=== PATIENT | male | born 2005 | race Caucasian/White ===

== ENCOUNTER 2024-04-16 14:52 | Outpatient (REF) | payer OTHER, SELFPAY ==
--- OUTSIDE RECORDS SUMMARY | 2024-04-16 15:58 | XMS_ITS | Clinical Summary ---
Author Organization [employer] Address [address] [facility] 7t [place] [address] Care Team Providers Care Supervisor [employer] Name Role Phone Jaqueline Fernández MD Primary Care Provider [phone] Allergies No known active allergies Medications * This document contains information received from the source organization and may not represent a complete record from that organization. cetirizine (ZyrTEC) 10 MG tablet 1 tablet by oral route daily 09/17/2020 Active Melatonin 5 MG capsule one at night for better sleep 03/03/2021 Active Sodium Fluoride (PreviDent) 1.1 % gel Orange 2x a day and floss with toothpaste. Spit excess, do not rinse. Do not eat or drink for 30min after 09/24/2021 Active buPROPion XL (Wellbutrin XL) 150 MG 24 hr tablet Take 150 mg by mouth in the morning. 01/02/2023 Active busPIRone (Buspar) 5 MG tablet 03/28/2023 Active meloxicam (Mobic) 15 MG tablet TAKE 1 TABLET BY MOUTH EVERY DAY IN THE MORNING 30 tablet 06/27/2023 Active Active Problems Problem Noted Date Diagnosed Date Adjustment disorder with mixed anxiety and depre ssed mood 09/27/2022 Assessment & Plan (09/27/2022 9:11 AM EDT): Assessment: Artie was engaged with active reflective listening and open-ended questions. Assessed symptoms, risks, and social supports with direct questions. Discussed current symptoms intensity and frequency. Emotions were normalized and validated. He identified playing music as coping mechanisms and his girlfriend as protective factors. Provided psychoeducation around relaxation techniques and coping skills for anxiety. Discussed OP therapy and Medication Management he agreed to Ind. Therapy referral. Provided education around integrated medicine and the options of follow up BE's as needed. Provided contact information should questions or concerns arise. Plan: Artei will continue to engage in effective coping mechanisms that has worked for him in the past and will try the new ones at least 2 times per day for 6 months to develop the skills. Patient with lack of motivation, feeling down, sleep disturbance, little energy, low self-esteem, trouble with concentration, passive thoughts w/o plan or intention, feeling anxious, persistent worry, trouble with relaxing, fidgeting, irritable, fearfulness. He denies SI, HI, or self-harm. He recently moved with his girlfriend to her parents house, reported is a more calm environment, Hx of been bullied in school, next week will start working at [employer]. Currently drinking on social occasion, smoking cannabis almost every day and cigarettes some time. Today his PHQ9 score was 12 and his GAD7 was 16. Patient will benefit from Ind. Therapy. At this time Artie Eastman meets criteria for Visit Diagnoses: Problem List Items Addressed This Visit Other Adjustment disorder with mixed anxiety and depressed mood Patient ready to address current needs Yes Strengths include willing to seek treatment PLAN: 1. Follow up with [facility]: Not recommended for follow-up 2. Patient goal is to engage in MH services 3. Behavioral Recommendations a. Ind. Therapy b. Use of coping skills c. [facility] contact for support as needed. Continuous cannabis use 09/27/2022 Assessment & Plan (09/27/2022 9:11 AM EDT): Assessment: Artie was engaged with active reflective listening and open-ended questions. Assessed symptoms, risks, and social supports with direct questions. Discussed current symptoms intensity and frequency. Emotions were normalized and validated. He identified playing music as coping mechanisms and his girlfriend as protective factors. Provided psychoeducation around relaxation techniques and coping skills for anxiety. Discussed OP therapy and Medication Management he agreed to Ind. Therapy referral. Provided education around integrated medicine and the options of follow up BE's as needed. Provided contact information should questions or concerns arise. Plan: Artie will continue to engage in effective coping mechanisms that has worked for him in the past and will try the new ones at least 2 times per day for 6 months to develop the skills. Patient with lack of motivation, feeling down, sleep disturbance, little energy, low self-esteem, trouble with concentration, passive thoughts w/o plan or intention, feeling anxious, persistent worry, trouble with relaxing, fidgeting, irritable, fearfulness. He denies SI, HI, or self-harm. He recently moved with his girlfriend to her parents house, reported is a more calm environment, Hx of been bullied in school, next week will start working at [employer]. Currently drinking on social occasion, smoking cannabis almost every day and cigarettes some time. Today his PHQ9 score was 12 and his GAD7 was 16. Patient will benefit from Ind. Therapy. At this time Artie Eastman meets criteria for Visit Diagnoses: Problem List Items Addressed This Visit Other Adjustment disorder with mixed anxiety and depressed mood Patient ready to address current needs Yes Strengths include willing to seek treatment PLAN: 1. Follow up with [facility]: Not recommended for follow-up 2. Patient goal is to engage in MH services 3. Behavioral Recommendations a. Ind. Therapy b. Use of coping skills c. [facility] contact for support as needed. Seasonal allergies 07/12/2017 Attention deficit hyperactivity disorder 013 Encounters Date Type Department Care Team Description 04/16/2024 1:40 PM EST Office Visit [facility] [address] [place] [address] Chlamydia contact (Primary Dx) 04/16/2024 Travel 04/16/2024 Telephone [facility] [address] [place] [address] Jaqueline Fernández MD Nurse Triage 03/28/2024 Telephone [facility] [address] [place] [address] Jaqueline Fernández MD Nurse Triage from Last 3 Months Immunizations Name Administration Dates Next Due DTaP 11/25/2008, 6,03/24/2005,01/25 DTaP / HiB / IPV 11/25/2008 HPV 9-Valent 01/24/2017,05/20/2016 Hep A, ped/adol, 2 dose 09/04/2018,12/25/2015 Hep B, Adolescent or Pediatric 6,03/24/2005,01/25/2005,11/23 HiB, unspecified 11/25/2008 Hib (HbOC) 06/02/2005,03/24/2005,01/25/2005 IPV 06/02/2005,03/24/2005,01/25/2005 Influenza injectable quadriv alent preservative free 03/31/2023,04/21/2016 Influenza live intranasal qu adrivalent LIAV4 03/25/2015 Influenza, live, intranasal 12/21/2011 Influenza, seasonal, injecta ble, preservative free 02/10/2022 MMR 11/25/2008 MMRV 12/25/2015 Meningococcal MCV4P ACYW-135 05/20/2016 Meningococcal Polysaccharide A,C,Y,W-135 TT Conjugate 03/31/2023 Pfizer Covid-19 Vaccine 12+ 10/20/2020 Pneumococcal Conjugate PCV 7 11/25/2008,06/03/19 06,03/24/2005 Pneumococcal, Unspecified 11/25/2008,06/02/2005, 03/24/2005 Tdap 05/20/2016 Varicella 11/25/2008 Social History Tobacco Use Types Packs/Day Years Used Date Smoking Tobacco: Every Day Cigarettes 0.1 2.1 Started: 2022 Smokeless Tobacco: Never Tobacco Cessation:Ready to Q uit: No; Counseling Given: Yes Alcohol Use Standard Drinks/Week Comments Not Currently 0 (1 standard drink = 0.6 oz pur e alcohol) Depression Answer Date Recorded Patient Health Questionnaire-9 Score 13 03/31/2023 Patient Health Questionnaire-9 Score 13 03/31/2023 Last PHQ-9: Questionnaire Data Not on file 0 03/31/2023 Housing Stability Answer Date Recorded What is your housing situation today? I have mariannibeth maravilla 01/02/[address] you li ve. Do you have problems with any of the following? None of the above 01/02/2023 Food Insecurity Answer Date Recorded Within the past 12 months, y ou worried that your food would run out before you got money to buy more: Never True 01/02/2023 Within the past 12 months,th e food you bought just didn't last and you didn't have enough money to get more: Never True 07/2022 Transportation Answer Date Recorded In the past 12 months, has l ack of transportation kept you from medical appts, meetings, work or from getting things needed for daily living? No 01/02/2023 Utilities Answer Date Recorded In the past 12 months, has t he electric, gas, oil or water company threatened to shut off services in your home? No 01/02/2023 Depression Answer Date Recorded Patient Health Questionnaire-2 Score 3 03/31/2023 Sex and Gender Information Value Date Recorded Sex Assigned at Male 12/27/2021 10:18 AM EDT Legal Sex Male 10:18 AM EDT Gender Identity Male 12/27/2021 10:18 AM EDT Sexual Orientation Choose not to disclose 2021 10:18 AM EDT Last Filed Vital Signs Vital Sign Reading Time Taken Comments Blood Pressure 110/76 04/16/2024 1:50 PM EST Pulse 100 04/16/2024 1:50 PM EST Temperature 36.2 ??C (97.2 ??F) 04/16/2024 1:50 PM ES T Respiratory Rate 20 04/16/2024 1:50 PM EST Oxygen Saturation 97% 04/16/2024 1:50 PM EST Inhaled Oxygen Concentration - - Weight 49.4 kg (109 lb) 04/16/2024 1:50 PM EST Height 172.7 cm (5' 8 ) 04/16/2024 1:50 PM EST Body Mass Index 16.57 04/16/2024 1:50 PM EST Plan of Treatment Health Maintenance Due Date Last Done Comments Dental X-Ray: Full Mouth 2004 HIV Screening 2004 Alcohol/Substance Use Screening 2016 Family Planning (PISQ) 11/23/2019 Fluoride Varnish 09/28/2022 03/31/2022 Dental Oral Exam 09/29/2022 03/31/2022 Dental Prophylaxis 09/29/2022 03/31/2022 Hepatitis C Screening 2022 SDOH Screening 02/10/2023 02/10/2022 Dental X-Ray: Bitewings 04/01/2023 03/31/2022 Depression Monitoring (PHQ-9) 09/29/2023 03/31/2023, 03/31/2023 COVID-19 Vaccine ( season) 2023 11/10/2020, 10/20/2020 Influenza Vaccine (#1) 2023 , 02/10/2022, 04/21/2016, Additional history exists Pneumococcal Vaccine: Pediatrics (0 to 5 Years) and At-Risk Patients (6 to 49) Years) (1 of 2 - PCV) 11/23/2023 11/25/2008, 11/25/2008, 06/02/2005, Additional history exists Chlamydia and Gonorrhea Screening 03/31/2024 03/31/2023 Depression Screening 03/31/2024 03/31/2023, 03/31/19 Tobacco Screening 04/16/2025 04/16/2024 DTaP/Tdap/Td Vaccines (6 - Td or Tdap) 05/20/2026 05/20/2016, 11/25/2008, 11/25/2008, Additional history exists Zoster Vaccines (1 of 2) 2054 RSV Patients and Patients Aged 60 years or older (1 - 1-dose 75+ series) 11/23/2079 Hepatitis B Vaccines Completed 06/02/2005, 03/24/2005, 01/25/2005, Additional history exists HIB Vaccines Completed 11/25/2008, 10/29, 06/02/2005, Additional history exists IPV Vaccines Completed 11/25/2008, 07/2005, 03/24/2005, Additional history exists MMR Vaccines Completed 12/25/2015, 11/25/2008 Varicella Vaccines Completed 12/25/2015, 11/25/2008 HPV Vaccines Completed 01/24/2017, 05/20/2016 Hepatitis A Vaccines Completed 09/04/2018, 12/25/19 16 Meningococcal Vaccine Completed 03/31/2023, 017 RSV under 20 months Aged Out No longe r eligible based on patient's age to complete this topic Rotavirus Vaccines Aged Out No longer eligible based on patient's age to complete this topic Procedures Procedure Name Priority Date/Time Associated Diagnosis Comments CHLAMYDIA/N. GONORRHOEAE RNA, TMA, UROGENITAL Routine 03/31/2023 11:30 AM EST Routine screening for STI (sexually transmitted infection) Full PROPHYLAXIS - ADULT Routine 03/31/2022 1:45 PM EST BITEWINGS - 4 RADIOGRAPHIC IMAGES Routine 03/31/2022 1:45 PM EST PERIODIC ORAL EVALUATION - ESTABLISHED PATIENT Routine 03/31/2022 1:45 PM EST TOPICAL APPLICATION OF FLUORIDE VARNISH Routine 03/31/2022 1:45 PM EST from Last 3 Months or Most Recently Relevant to Health Maintenance Results * Chlamydia/N. Gonorrhoeae RNA, TMA, Urogenitial (03/31/2023 11:30 AM EST) CT PCR NOT DETECTED Not Detect. [facility] Comment:A not detected test result does not exclude the possibilityof infection because test results can be affected byimproper specimen collection, concurrent antibiotic therapy,or the number of organisms in the specimen which may bebelow the sensitivity of the test. As with many diagnostictests, results from the Xpert CT/NG assay should beinterpreted in conjunction with other laboratory andclinical data available to the clinician.Xpert CT/NG performance has not been evaluated in patientsless than 14 years of age. The assay should not be used forthe evaluationof suspected sexual abuse or for other medico-legalindications. Additional testing is recommended in anycircumstance when false positive or false negative resultscould lead to adverse medical, social or psychologicalconsequences. NG PCR NOT DETECTED Not Detect. [facility] Comment:A not detected test result does not exclude the possibilityof infection because test results can be affected byimproper specimen collection, concurrent antibiotic therapy,or the number of organisms in the specimen which may bebelow the sensitivity of the test. As with many diagnostictests, results from the Xpert CT/NG assay should beinterpreted in conjunction with other laboratory andclinical data available to the clinician.Xpert CT/NG performance has not been evaluated in patientsless than 14 years of age. The assay should not be used forthe evaluationof suspected sexual abuse or for other medico-legalindications. Additional testing is recommended in anycircumstance when false positive or false negative resultscould lead to adverse medical, social or psychologicalconsequences. Urine (Urine, Random) 03/31/2023 11:30 AM EST 03/31/2023 6:40 PM EST Narrative [facility] - 04/01/2023 5:53 AM EST Urine us Jaqueline Fernández MD LAB MICROBIOLOGY - GENERAL OR DERABLES Final Result [facility] [address] [place] [address] [phone] from Last 3 Months or Most Recently Relevant to Health Maintenance Insurance [employer] [employer] ST[employer]ILD DENTAL - [employer]ENT[employer] PPO Care Teams Supervisor [employer] Relationship Specialty Start Date End Date Jaqueline Fernández MD [address] [place] [id number] PCP - General Family Medicine 02/27/18
--- OUTSIDE RECORDS SUMMARY | 2024-04-16 15:58 | XMS_ITS | Encounter Summary ---
Author Organization [employer] Address [address] [facility] 7t [place] [address] Care Team Providers Care Mixing Machine Feeder Name Role Phone Jaqueline Fernández MD Primary Care Provider [phone] Encounter Details Date Type Department Care Team ([facility] st Contact Info) Description 04/16/2024 1:40 PM EST Office Visit [facility]S [address] [place] [address] Chlamydia contact (Primary Dx) Social History Tobacco Use Types Packs/Day Years Used Date Smoking Tobacco: Every Day Cigarettes 0.1 2.1 Started: 2022 Smokeless Tobacco: Never Alcohol Use Standard Drinks/Week Comments Not Currently 0 (1 standard drink = 0.6 oz pur e alcohol) Depression Answer Date Recorded Patient Health Questionnaire-9 Score 13 03/31/2023 Patient Health Questionnaire-9 Score 13 03/31/2023 Last PHQ-9: Questionnaire Data Not on file 0 03/31/2023 Housing Stability Answer Date Recorded What is your housing situation today? I have mariann maravilla 01/02/[address] you [...] not to disclose 2021 10:18 AM EDT documented as of this encounter Last Filed Vital Signs Vital Sign Reading [...] Mass Index 16.57 04/16/2024 1:50 PM EST documented in this encounter Plan of Treatment Scheduled Orders Name Type Priority Associated Diagnoses Orde r Schedule Chlamydia/N. Gonorrhoeae RNA, TMA, Urogenitial Microbiology Routine Chlamydia contact Ordered: 04/16/2024 HIV-1/2 Antigen and Antibodies, Fourth Generation, with Reflexes Lab Routine Chlamydia contact Expected: 04/16/2024 (Approximate), Expires: 04/16/2025 Syphilis Screen Lab Routine Chlamydia contact Expected: 04/16/2024, Expires: 04/16/2025 documented as of this encounter Visit Diagnoses Diagnosis Chlamydia contact- Primary Contact with or exposure to venereal diseases documented in this encounter Additional Health Concerns Assessment Noted Time PHQ-9 Depression Total Score: 13 024 11:07 AM EST documented as of this encounter Care Teams Mixing Machine Feeder Relationship Specialty Start Date End Date Jaqueline Fernández MD [address] [place] [address] PCP - General Family Medicine 02/27/18 documented as of this encounter
--- OUTSIDE RECORDS SUMMARY | 2024-04-16 15:58 | XMS_ITS | Encounter Summary ---
Author Organization [employer] Address [address] [facility] 7t [place] [address] Care Team Providers Care Count Room Clerk Name Role Phone Jaqueline Fernández MD Primary Care Provider [phone] Reason for Visit * Reason Onset Date Comments Nurse Triage 04/16/2024 Encounter Details Date Type Department Care Team ([facility] Contact Info) Description 04/16/[address] [facility] [address] [place] [address] Jaqueline Fernández MD [address] [place] [address] Nurse Triage Social History Tobacco Use Types Packs/Day Years [...] AM EDT documented as of this encounter Miscellaneous Notes * Telephone Encounter - Sherron Kim RN - 04/16/2024 9:49 AM EST Call returned to [facility] [place] below. Patient mom who is on last signed HIPAA form. Reports having pain with passing urine x 3-4 days. Reports having frequency. No fever, N/V or abdominal pain. Advised of disposition, agrees to sick on stie with DEC. Reviewed home care advise, ER precautions and reasons to call back. Protocol Used: Urination Pain - Male (Adult) Protocol-Based Disposition: See in Office or Video Visit Today Future Appointments Date Time Provider Department Center 04/16/2024 1:40 PM [facility] Insurance verified as active per Real Time Eligibility in [facility]. Positive Triage Question: * All other males with painful urination, or patient wants to be seen * All higher-acuity triage questions were negative Care Advice Discussed: * Drink Extra Fluids * Reasons To Call Back - Side (flank) or lower back pain occurs - You become worse * Telephone Encounter - Rosario Lau - 04/16/2024 9:08 AM EST Symptom: Urination Pain Outcome: Schedule a same-day appointment or talk to a nurse or provider today Reason: Caller denied all higher acuity questions The caller accepted this outcome. Please contact bryce due to pt working documented in this encounter Plan of Treatment Not on file documented as of this encounter Visit Diagnoses Not on filedocumented in this encounter Additional Health Concerns Assessment Noted Time PHQ-9 Depression Total Score: 13 024 11:07 AM EST documented as of this encounter Care Teams Count Room Clerk Relationship Specialty Start Date End Date Jaqueline Fernández MD [address] [place] [id number] PCP - General Family Medicine 02/27/18 documented as of this encounter
--- OUTSIDE RECORDS SUMMARY | 2024-04-16 15:58 | XMS_ITS | Clinical Summary ---
Author Organization [facility] Address [address] [place] [address] Care Team Providers Care Steel Layout Worker Name Role Phone Unavailable Primary Care Provider Unavailabl e Social History Tobacco Use Types Packs/Day Years Used Date Smoking Tobacco: Never Assessed Sex and Gender Information Value Date Recorded Sex Assigned at Not on file Legal Sex Male 3:20 AM EST Gender Identity Not on file Sexual Orientation Not on file Plan of Treatment Health Maintenance Due Date Last Done Comments Varicella Vaccines (1 of 2 - 13+ 2-dose series) 2017 HPV Vaccines (1 - Male 3-dos e series) 11/23/2019 Meningococcal B Vacine (1 of 2 - Standard) 2020 Annual Well Child Visit (3-2 1 years old) 01/30/2022 Depression Screening 01/30/2022 HIV Screening 01/30/2022 Hepatitis C Screening 01/30/2022 Social Influencers of Health Screening 01/30/2022 COVID-19 Vaccine (1 - 2023-2 5 season) 2023 Influenza Vaccine (#1) 2023 DTaP,Tdap,and Td Vaccines (1 - Tdap) 11/23/2023 Hepatitis B Vaccines (1 of 3 - 19+ 3-dose series) 11/23/2023 HIB Vaccines Aged Out No longer eligi ble based on patient's age to complete this topic Hepatitis A Vaccines Aged Out No long er eligible based on patient's age to complete this topic IPV Vaccines Aged Out No longer eligi ble based on patient's age to complete this topic MMR Vaccines Aged Out No longer eligi ble based on patient's age to complete this topic Meningococcal ACWY Vaccine Aged Out N o longer eligible based on patient's age to complete this topic Pneumococcal Vaccine: Pediat rics (0 to 5 Years) and At-Risk Patients (6 to 64 Years) Aged Out No longer eligible b ased on patient's age to complete this topic RSV Immunization Patients Un sony 20 months Aged Out No longer eligible b ased on patient's age to complete this topic
--- OUTSIDE RECORDS SUMMARY | 2024-04-16 15:58 | XMS_ITS | Encounter Summary ---
Author Organization [employer] Address [address] [facility] [address]t [place] [address] Care Team Providers Care Supervisor Reclamation Name Role Phone Jaqueline Fernández MD Primary Care Provider [phone] Reason for Visit * Reason Onset Date Comments Nurse Triage 03/28/2024 Encounter Details Date Type Department Care Team ([facility] st Contact Info) Description 03/28/2024 Telephone [facility] [address] [place] [address] Jaqueline Fernández MD [address] [place], [place] [phone] Nurse Triage Social History Tobacco Use Types [...] Telephone Encounter - Sherron Kim RN - 03/28/2024 9:46 AM EST [facility] to triage below. Mom on HIPAA release. .Reports having sx x 2. Per mom sx of subjective fever, congestion, WANG. Mom reports pt has used OTC medications. Denies pt reporting CP, tightness or wheezing with breathing. Mom advised of disposition, no appts available in [facility]. Agrees to have pt seek [facility] for exam Reviewed [facility] operating hours and that wait times vary. Reviewed home care advise, ER precautions and reasons to call back. Protocol Used: COVID-19 - Diagnosed or Suspected (Adult) Protocol-Based Disposition: Home Care Positive Triage Question: * COVID-19 infection suspected and mild symptoms (cough, fever, or others) and has not gotten tested yet * All higher-acuity triage questions were negative Care Advice Discussed: * Reassurance and Education - Suspected COVID-19 and Testing Needed * Humidifier * Coughing Spells * Pain and Fever Medicines * Reasons To Call Back - Fever over 103 F (39.4 C) - Chest pain or difficulty breathing occurs - You become worse * Telephone Encounter - Luly Lewis - 03/28/2024 8:54 AM EST Symptoms: Nausea But No Vomiting, Fever, Chest Congestion, Headache Outcome: Schedule an urgent appointment (within 4 hours) or talk to a nurse or provider soon Reason: Getting worse The caller accepted this outcome. documented in this encounter Plan of Treatment Not on file documented as of this encounter Visit Diagnoses Not on filedocumented in this encounter Additional Health Concerns Assessment Noted Time PHQ-9 Depression Total Score: 13 024 11:07 AM EST documented as of this encounter Care Teams Supervisor Reclamation Relationship Specialty Start Date End Date Jaqueline Fernández MD [address] [place] [id number] PCP - General Family Medicine 02/27/18 documented as of this encounter
--- OUTSIDE RECORDS SUMMARY | 2024-04-16 15:58 | XMS_ITS | Encounter Summary ---
Author Organization [employer] Address [address] [facility] [address] [place] [address] Care Team Providers Care Labor Utilization Superintendent Name Role Phone Jaqueline Fernández MD Primary Care Provider [phone] Encounter Details Date Type Department Care Team (Latest Contact Info) Description 04/16/2024 Travel Social History Tobacco Use Types Packs/Day Years [...] AM EDT documented as of this encounter Plan of Treatment Not on file documented as of this encounter Visit Diagnoses Not on filedocumented in this encounter Additional Health Concerns Assessment Noted Time PHQ-9 Depression Total Score: 13 024 11:07 AM EST documented as of this encounter Care Teams Labor Utilization Superintendent Relationship Specialty Start Date End Date Jaqueline Fernández MD [address] [place] [id number] PCP - General Family Medicine 02/27/18 documented as of this encounter
--- OUTSIDE RECORDS SUMMARY | 2024-04-16 15:58 | XMS_ITS | Encounter Summary ---
Author Organization [employer] Address [address] [place] [address] [address] [place] [address] Care Team Providers Care Line Out Man Name Role Phone Jaqueline Fernández MD Primary Care Provider [phone] Encounter Details Date Type Department Care Team (Late st Contact Info) Description 03/31/2022 Abstract [facility] [address] [place] [address] Jae Love DMD Social History Tobacco Use Types Packs/Day Years Used Date Smoking Tobacco: Never Smokeless Tobacco: Never Sex and Gender Information Value Date Recorded Sex Assigned at Male 12/27/2021 10:18 AM EDT Legal Sex Male 10:18 AM EDT Gender Identity Male 12/27/2021 10:18 AM EDT Sexual Orientation Choose not to disclose 2021 10:18 AM EDT COVID-19 Exposure Response Date Recorded In the last 10 days, have yo u been in contact with someone who was confirmed or suspected to have Coronavirus/COVID-19? No / Unsure 03/31/2022 1:41 PM EST documented as of this encounter Plan of Treatment Scheduled Orders Name Type Priority Associated Diagnoses Orde r Schedule 2 MO 2 MO RESIN-BASED COMPOSITE - 2 SURFACES, POSTERIOR Dental Routine [address] arting 08/17/2022 3 DO 3 DO RESIN-BASED COMPOSITE - 2 SURFACES, POSTERIOR Dental Routine [address] arting 08/17/2022 INHALATION OF NITROUS OXIDE/ANALGESIA, ANXIOLYSIS Dental Routine [address] arting 08/17/2022 documented as of this encounter Procedures Procedure Name Priority Date/Time Associated Diagnosis Comments 15 LO COMPOSITE FILLING Routine 01/28/2020 12:00 AM EST 14 MOD COMPOSITE FILLING Routine 01/28/2020 12:00 AM EST 13 MOD COMPOSITE FILLING Routine 01/28/2020 12:00 AM EST 12 DO COMPOSITE FILLING Routine 01/28/2020 12:00 AM EST 18 O SEALANT - PER TOOTH Routine 04/24/2018 12:00 AM EST 30 O SEALANT - PER TOOTH Routine 04/24/2018 12:00 AM EST 31 O SEALANT - PER TOOTH Routine 04/24/2018 12:00 AM EST 3 O SEALANT - PER TOOTH Routine 04/24/2018 12:00 AM EST 2 O SEALANT - PER TOOTH Routine 04/24/2018 12:00 AM EST 30 B COMPOSITE FILLING Routine 02/05/2014 12:00 AM EST 19 B COMPOSITE FILLING Routine 02/05/2014 12:00 AM EST documented in this encounter Visit Diagnoses Not on filedocumented in this encounter Additional Health Concerns Assessment Noted Time PHQ-9 Depression Total Score: 15 022 4:09 PM EST documented as of this encounter Care Teams Line Out Man Relationship Specialty Start Date End Date Jaqueline Fernández MD [address] [place] [id number] PCP - General Family Medicine 02/27/18 documented as of this encounter
--- OUTSIDE RECORDS SUMMARY | 2024-04-16 15:58 | XMS_ITS | Encounter Summary ---
Author Organization [employer] Address [address] [facility] [address] [place] [address] Care Team Providers Care Loan Manager Name Role Phone Jaqueline Fernández MD Primary Care Provider [phone] Reason for Visit * Reason Onset Date Comments Results 04/05/2023 Encounter Details Date Type Department Care Team ([facility] Contact Info) Description 04/05/2023 Telephone [facility] [address] [place] [address] Jaqueline Fernández MD [address] [place] [address] Results Social History Tobacco Use Types Packs/Day Years [...] encounter Miscellaneous Notes * Telephone Encounter - Lucie Martinez RN - 04/12/2023 10:29 AM EST Records not in chart. Fax [facility] request for XR report to scan into chart for PCP review. * Telephone Encounter - Jose Raul Billy - 04/05/2023 2:25 PM EST TC from pt requesting call back regarding Results. Type of results: X-ray on lumbar spine Date when done: 03/31/2023 Facility: [facility] documented in this encounter Plan of Treatment Not on file documented as of this encounter Visit Diagnoses Not on filedocumented in this encounter Additional Health Concerns Assessment Noted Time PHQ-9 Depression Total Score: 13 024 11:07 AM EST documented as of this encounter Care Teams Loan Manager Relationship Specialty Start Date End Date Jaqueline Fernández MD [address] [place] [address] PCP - General Family Medicine 02/27/18 documented as of this encounter
[2024-04-17 02:30] LABS: CT PCR DETECTED (Not Detect.); NG PCR NOT DETECTED (Not Detect.)
== END 2024-04-16 14:53 | disposition home or self-care (01) ==
LOC: HO.CHCLNP 14:52
PROVIDERS: Visit Provider Internal Medicine
DX: Z20.2 Contact with and (suspected) exposure to infections with a predominantly sexual mode of transmission (principal)
CPT/HCPCS: 87491; 87591